=== PATIENT | female | born 1985 | race American Indian/Alaskan Native ===

== ENCOUNTER 2020-11-10 14:58 | Emergency (ER) | payer OTHER ==
[2020-11-10] MEDS ORDERED: diphenhydrAMINE 50 MG/ML VIAL IV ONE (15:05)
[2020-11-10] MEDS ORDERED: LORazepam 2 MG/ML VIAL IV ONE (15:05)
--- NOTE | 2020-11-10 16:27 | Emergency Department Report ---
ED Psych HPI - General Chief Complaint: Anxiety Stated Complaint: EXCESSIVE SHAKING Time Seen by Provider: 11/10/20 15:01 Source: patient Mode of arrival: Stretcher - History of Present Illness Initial Comments: Patient is a 35-year-old F [place] female who is presenting with "uncontrollable shaking" since earlier this morning. She is on Wellbutrin. Patient states states she is unable to control her arms and legs and they are continuously shaking. She denies homicidal suicidal ideations auditory visual hallucinations. - Related Data Previous Rx's Medication Instructions Recorded Last Taken Type LORazepam [Ativan] 1 mg PO QHS #6 tab 11/10/20 Unknown Rx Allergies Allergy/AdvReac Type Severity Reaction Status Date / Time No Known Allergies Allergy Unverified 11/10/20 15:45 ED Review of Systems ROS: Stated complaint: EXCESSIVE SHAKING Other details as noted in HPI Comment: All other systems reviewed and negative ED Past Medical Hx - Past Medical History Previous Medical History?: Yes Hx Arthritis: Yes (back) Additional medical history: DJD - Surgical History Past Surgical History?: No - Social History Smoking Status: Never Smoker Substance Use Type: Alcohol - Medications Home Medications: Home Medications Medication Instructions Recorded Confirmed Last Taken Type LORazepam [Ativan] 1 mg PO QHS #6 tab 11/10/20 Unknown Rx ED Physical Exam - General Limitations: Physical Limitation General appearance: alert, in no apparent distress - Head Head exam: Present: atraumatic, normocephalic - Eye Eye exam: Present: normal appearance - ENT ENT exam: Present: mucous membranes moist - Neck Neck exam: Present: normal inspection - Respiratory Respiratory exam: Present: normal lung sounds bilaterally. Absent: respiratory distress, wheezes, rales - Cardiovascular Cardiovascular Exam: Present: regular rate, normal rhythm, normal heart sounds. Absent: systolic murmur, diastolic murmur, rubs, gallop - GI/Abdominal GI/Abdominal exam: Present: soft, normal bowel sounds - Extremities Exam Extremities exam: Present: normal inspection - Back Exam Back exam: Present: normal inspection - Neurological Exam Neurological exam: Present: alert, oriented X3, motor sensory deficit - Psychiatric Psychiatric exam: Present: normal affect, normal mood, other (Patient is shaking in the room. When I asked the patient to try to stay still I can listen to her heart tones she was able to remain completely still.) - Skin Skin exam: Present: warm, dry, intact, normal color. Absent: rash ED Course Vital Signs 11/10/20 15:43 Temperature 98.2 F Pulse Rate 97 H Respiratory 18 Rate Blood Pressure 113/62 [Left] O2 Sat by Pulse 98 Oximetry ED Medical Decision Making - Medical Decision Making Patient given some medication for symptomatic relief. Believe that her symptoms are secondary anxiety and conversion disorder. This does not appear to be dystonic reaction. Critical care attestation.: If time is entered above; I have spent that time in minutes in the direct care of this critically ill patient, excluding procedure time. ED Disposition Clinical Impression: Acute anxiety Disposition: DC-01 TO HOME OR SELFCARE Is pt being admited?: No Does the pt Need Aspirin: No Condition: Stable Instructions: Managing Anxiety, Adult Prescriptions: LORazepam [Ativan] 1 mg PO QHS #6 tab Referrals: PRIMARY CARE, [Primary Care Provider] - 3-5 Days Time of Disposition: 16:39
[2020-11-10 17:04] VITALS: BP 102/54
== END 2020-11-10 17:04 | disposition home or self-care (01) ==
LOC: ED 14:58
DX: F41.9 Anxiety disorder, unspecified (principal); M19.90 Unspecified osteoarthritis, unspecified site; Z79.899 Other long term (current) drug therapy
CPT/HCPCS: 96374; 96375; 99283; J1200; J2060